=== PATIENT | male | born 1960 | race Caucasian/White ===

== ENCOUNTER → 2021-06-21 | Outpatient (CLI) | payer MEDICARE ==
[~2021-06-21] MED LIST: LISINOPRIL10 MG PO; METOPROLOL SUCC50 MG PO; PERCOCET 10-321 EACH PO; VALIUM 5 MG TAB5 MG PO
== END ==
LOC: HEART 5 08:30
DX: I25.10 Atherosclerotic heart disease of native coronary artery without angina pectoris (principal); Z95.5 Presence of coronary angioplasty implant and graft
CPT/HCPCS: 78452; 93306; A9502